=== PATIENT | female | born 1950 | race Caucasian/White ===

== ENCOUNTER 2024-04-20 15:49 | Emergency (ER) | payer MEDICARE, SELFPAY ==
[2024-04-20 16:13] VITALS: BP 165/75
--- NOTE | 2024-04-20 17:00 | ED.GENMED ---
History of Present Illness
General
Chief Complaint: Fall
Time Seen by Provider: 04/20/24 16:41
History of Present Illness
History of Present Illness:
73-year-old female presents for evaluation after mechanical trip and fall with resultant head strike. No loss of conscious. There is a small laceration to the right forehead. Denies headache or vision changes at this time. No neck pain or
extremity paresthesias. Does not take any blood thinners or antiplatelets
Past History
Past History
ED Past Medical History: Psychiatric and Other (osteoporosis)
Social History
Tobacco: Non-smoker
Alcohol: Occasional
Personal:
Living: with family
Employment: Retired
Family History
Family History: CAD (father at older age, 60's)
Review of Systems
Review of Systems
Allergies reviewed?: Yes
All Other Systems: ROS reviewed and negative except as documented in HPI and ROS
Phy Exam
Physical Exam
Physical Exam:
GEN: Well appearing, NAD, WDWN
HEENT: 1.5 cm stellate laceration to the right forehead with no active bleeding, no hematoma, oral mucosa moist, no scleral icterus, no nasal congestion
Cardiac: Regular rate
Lung: No respiratory distress, no tachypnea
MSK: No gross deformity or injuries
Skin: Good color, no pallor or jaundice, no rashes
Neuro: AO x3; CN II-XII grossly intact. BUE strength 5/5 in all cervantes, sensation intact and symmetric. BLE strength 5/5 in all cervantes, sensation intact and symmetric
Psych: Calm, cooperative
Course
Orders/Labs/Results
Orders:
Orders
04/20/24 17:00
Acetaminophen [Tylenol] 650 mg PO NOW STA
Tetanus/Diphth/Acelpertussis [Adacel] 0.5 ml IM .ONCE ONE
Vital Signs
Initial and Last Documented VS:
Initial Vital Signs
Temp Pulse Resp BP Pulse Ox
98.9 F 84 18 165/75 95
04/20/24 16:13 04/20/24 16:13 04/20/24 16:13 04/20/24 16:13 04/20/24 16:13
Last Documented Vital Signs
Temp Pulse Resp BP Pulse Ox
98.9 F 84 18 165/75 95
04/20/24 16:13 04/20/24 16:13 04/20/24 16:13 04/20/24 16:13 04/20/24 16:13
Procedures
Laceration Closure
Right Forehead:
Status of Wound: clean
Size of Wound in cm: 1.5
Description of Wound Edges: ragged
Preparation: cleaned with soap & water
Wound exploration: explored to base- no FB
Type of Closure: Dermabond-skin glue
MDM/Problems Addressed
MDM/Problems Addressed:
Do not see indication for CT of the head, laceration closed with skin glue
*Critical Care Note
Total Time (30-74mins, 75-104mins- exclusive of procedures): Not Applicable
ED Attending Note
-
Portions of this chart may have been created with voice recognition software.� Occasional wrong word or��sound alike� substitutions may have occurred due to the inherent limitations of voice recognition software.
Discharge Plan
Departure
Patient Disposition: Home (Routine Discharge)
Date of Disposition: 04/20/24
Time of Disposition: 17:00
Patient with high blood pressure during this ER visit?: No
Discharge Problem:
Laceration of scalp
Instructions: Laceration Repair With Glue (DC)
Prescriptions:
No Action
alendronate 10 MG tablet
10 mg PO .WEEKLY
escitalopram oxalate 10 MG tablet
10 mg PO DAILY
Referrals:
Madie Holt MD [Family Provider] -
Activity Restrictions/Additional Instructions:
Keep area fully dry tonight then you may shower as normal, do not scrub the area
Glue will gradually dissolve in 5-7 days
Interventions
Interventions:
*Risk Screen - Suicide Last Done: 04/20/24 16:13
*General Assessment Last Done: 04/20/24 16:13
*Neglect/Abuse Screening Last Done: 04/20/24 16:13
*ED COVID-19 Vaccine History Last Done: 04/20/24 16:13
*Nursing Disposition Last Done: 04/20/24 17:19
ED-Musculoskeletal Assessment Last Done: 04/20/24 16:40
ED- Neurological Assessment Last Done: 04/20/24 16:40
ED-Skin Assessment Last Done: 04/20/24 16:40
Discharge Date and Time
Discharge Date/Time: 04/20/24 17:19
Print Language: SWEDISH
[2024-04-20] MEDS: ADACEL 0.5 ML IM (17:07)
[2024-04-20] MEDS: TYLENOL 650 MG PO (17:07)
== END 2024-04-20 17:19 | disposition home or self-care (01) ==
LOC: EMR 15:49
PROVIDERS: EMERGENCY PHYSICIAN Emergency Medicine; FAMILY PHYSICIAN Internal Medicine
DX: S01.01XA Laceration without foreign body of scalp, initial encounter (principal); W01.0XXA Fall on same level from slipping, tripping and stumbling without subsequent striking against object, initial encounter; Z23 Encounter for immunization
CPT/HCPCS: 99283; 12001; 90471; 90715

== ENCOUNTER → 2024-06-18 10:52 | Outpatient (REF) | payer MEDICARE, SELFPAY | LOC: WDC 10:52 | PROVIDERS: ATTENDING PHYSICIAN Obstetrics & Gynecology Gynecology; FAMILY PHYSICIAN Internal Medicine | DX: Z12.31 Encounter for screening mammogram for malignant neoplasm of breast (principal) | CPT/HCPCS: 77063; 77067 ==